=== PATIENT | male | born 1960 | race Caucasian/White ===

== ENCOUNTER 2016-08-06 06:52 | Inpatient (IN) | payer BC ==
[~2016-08-06] VITALS: Ht 185.4 cm; Wt 132.2 kg
[2016-08-06] MEDS ORDERED: OPTIRAY 350 100 ML VIAL HMH IV ONE (06:53)
[2016-08-06] MEDS ORDERED: SODIUM CHLORIDE 0.9% 1,000 ML ONE (09:00)
[2016-08-06] MEDS ORDERED: ENOXAPARIN 100 MG/ML SYR SUBQ ONE (09:33)
[2016-08-06] MEDS ORDERED: ENOXAPARIN 30 MG/0.3 ML SYR ONE (09:37)
[2016-08-06] MEDS ORDERED: ENOXAPARIN 120 MG/0.8 ML SYR SUBQ ONE (09:50)
[2016-08-06] MEDS ORDERED: ALU/MAG/SIM 30 ML UDC PO PRN (10:30)
[2016-08-06] MEDS ORDERED: ONDANSETRON 4 MG VIAL IV PRN (10:30)
[2016-08-06] MEDS ORDERED: DILAUDID 1 MG/ML AMP IV PRN (10:30)
[2016-08-06] MEDS ORDERED: SALINE FLUSH 10 ML FLUSH PRN (10:30)
[2016-08-06] MEDS ORDERED: TEMAZEPAM 7.5 MG CAP PO PRN (10:30)
[2016-08-06] MEDS ORDERED: BISACODYL EC 5 MG TAB PO PRN (10:30)
[2016-08-06] MEDS ORDERED: MAG HYDROX 30 ML UDC PO PRN (10:30)
[2016-08-06] MEDS ORDERED: BISACODYL 10 MG SUPP RECTAL PRN (10:30)
[2016-08-06] MEDS: ENOXAPARIN 120 MG/0.8 ML SYR SUBQ SCH ×2 (10:35→22:29)
[2016-08-06 14:22] VITALS: BP_SYST 144; BP_SYST 150; RESP 18; TEMP 98.1
[2016-08-06 14:23] VITALS: Ht 185.4 cm; Wt 132.2 kg
[2016-08-06 14:58] VITALS: RESP 18
[2016-08-06 19:23] VITALS: BP_SYST 130; RESP 16; TEMP 98.1
[2016-08-06] MEDS: SALINE FLUSH 10 ML FLUSH SCH (20:00)
[2016-08-06 23:09] VITALS: BP_SYST 138; TEMP 99
[2016-08-06 23:10] VITALS: RESP 16
[2016-08-07] MEDS ORDERED: ALU/MAG/SIM 30 ML UDC ONE (01:21)
[2016-08-07] MEDS ORDERED: LIDOCAINE 2% VISC 15 ML UDC ONE (01:21)
[2016-08-07] MEDS ORDERED: METOCLOPRAMIDE 10 MG/2 ML VIAL ONE (01:21)
[2016-08-07] MEDS ORDERED: MORPHINE 4 MG/ML SYR ONE (01:22)
[2016-08-07 03:44] VITALS: BP_SYST 140; RESP 18; TEMP 98.8
[2016-08-07] MEDS: SODIUM CHLORIDE 0.9% FLUSH BAG 500 ML IV SCH (05:45)
[2016-08-07 07:47] VITALS: BP_SYST 129; RESP 18; TEMP 98.5
[2016-08-07] MEDS: SALINE FLUSH 10 ML FLUSH SCH ×2 (10:57→19:56)
[2016-08-07] MEDS: ENOXAPARIN 120 MG/0.8 ML SYR SUBQ SCH (10:58)
[2016-08-07 11:03] VITALS: BP_SYST 121; RESP 18; TEMP 98.8
[2016-08-07] MEDS: APIXABAN 5 MG TAB PO SCH ×2 (15:13→21:34)
[2016-08-07 15:34] VITALS: BP_SYST 105; RESP 18; TEMP 97.9
[2016-08-07] MEDS: ACETAMINOPHEN 325 MG TAB PO PRN (17:09)
[2016-08-07 19:30] VITALS: BP_SYST 140; RESP 16; TEMP 98.8
[2016-08-07] MEDS ORDERED: MISSING DOSE XX ONE (21:25)
[2016-08-07 22:45] VITALS: BP_SYST 129; RESP 16; TEMP 98.1
[2016-08-08 04:12] VITALS: BP_SYST 130; RESP 16; TEMP 98.6
[2016-08-08] MEDS: SODIUM CHLORIDE 0.9% FLUSH BAG 500 ML IV SCH (04:36)
[2016-08-08 07:24] VITALS: BP_SYST 114; RESP 18; TEMP 98.7
[2016-08-08] MEDS: ACETAMINOPHEN 325 MG TAB PO PRN (07:35)
[2016-08-08] MEDS: SALINE FLUSH 10 ML FLUSH SCH (08:00)
[2016-08-08] MEDS ORDERED: MISSING DOSE XX ONE (08:45)
[2016-08-08] MEDS: APIXABAN 5 MG TAB PO SCH (09:23)
== END 2016-08-08 11:52 | disposition home or self-care (01) | DRG 299 ==
LOC: ENRESERVTM → ENRESERVDT → ER 06:52 → ENPENDDIS 10:35 → EMR 10:35 → 4THE 14:21
PROVIDERS: ADMIT Internal Medicine; ATTEND Internal Medicine
DX: I82.442 Acute embolism and thrombosis of left tibial vein (principal); I26.99 Other pulmonary embolism without acute cor pulmonale; I27.2 Other secondary pulmonary hypertension; G47.33 Obstructive sleep apnea (adult) (pediatric)
CPT/HCPCS: 36415; 71010; 71260; 80048; 80053; 82550; 83735; 83880; 84484; 85025; 85379; 85610; 85730; 93005; 93306; 93970; 94799; 96360; 96361; 96372; 99223; 99232; 99233; 99238